=== PATIENT | male | born 1970 | race Caucasian/White ===

== ENCOUNTER 2017-08-02 13:50 | Inpatient (IN) | payer OTHER ==
[2017-08-02 14:51] VITALS: BMI 26.1
--- NOTE | 2017-08-02 15:32 | HP ---
CIWA Score - CIWA Score Nausea/Vomitin-No Nausea/No Vomiting Muscle Tremors: 3 Anxiety: 5 Agitation: 4-Moderately Restless Paroxysmal Sweats: 3 Orientation: 0-Oriented Tacttile Disturbances: 3-Moderate Itch/Numb/Burn Auditory Disturbances: 0-None Visual Disturbances: 0-None Headache: 0-None Present CIWA-Ar Total Score: 18 Admission ROS BHS - HPI Chief Complaint: "I nee to try to clean myself up." Patient is here to Detox from Alcohol. Allergies/Adverse Reactions: Allergies Allergy/AdvReac Type Severity Reaction Status Date / Time bee venom protein (honey bee) AdvReac Severe Swelling Verified 08/02/17 15:29 History of Present Illness: Patient is a 47 Yo male here to detox from Alcohol. This is patient's first Detox admission at [facility]. Patient had a Detox admission at [facility] in 2016 and a Detox admission at [facility] in 2014. Longest period of sobriety in recent years: approx. 2 years (2014 - 2016). Exam Limitations: No Limitations - Ebola screening Have you traveled outside of the country in the last 21 days: No (N) Have you had contact with anyone from an Ebola affected area: No Have you been sick,other than usual withdrawal symptoms: No Do you have a fever: No - Review of Systems Constitutional: Chills, Diaphoresis, Fever, Malaise, Night Sweats, Changes in sleep EENT: reports: No Symptoms Reported Respiratory: reports: Productive cough Cardiac: reports: Palpitations GI: reports: No Symptoms Reported : reports: No Symptoms Reported Musculoskeletal: reports: Neck Pain Integumentary: reports: No Symptoms Reported Neuro: reports: Seizure (Last - just prior to Detox admission at [facility] in 2014.), Tremors Endocrine: reports: No Symptoms Reported Hematology: reports: No Symptoms Reported Psychiatric: reports: Judgement Intact, Mood/Affect Appropiate, Orientated x3, Anxious Other Systems: Reviewed and Negative Patient History - Patient Medical History Hx Anemia: No Hx Asthma: No Hx Chronic Obstructive Pulmonary Disease (COPD): No Hx Cancer: No Hx Cardiac Disorders: No Hx Congestive Heart Failure: No Hx Hypertension: Yes (NON-COMPLIANT WITH PX MEDICATION; PT REPORTS BP ONLY HIGH WHEN USING ALOHOL) Hx Hypercholesterolemia: Yes (NO PREVIOUS MEDS.) Hx Pacemaker: No HX Cerebrovascular Accident: No Hx Seizures: Yes (2015- RELATED TO ALCOHOL WITHDRAWAL) Hx Dementia: No Hx Diabetes: No Hx Gastrointestinal Disorders: No Hx Liver Disease: No Hx Genitourinary Disorders: No Hx Sexually Transmitted Disorders: No Hx Renal Disease (ESRD): No Hx Thyroid Disease: No Hx Human Immunodeficiency Virus (HIV): No (NEVER TESTED.) Hx Hepatitis C: No (NEVER TESTED.) Hx Depression: No Hx Suicide Attempt: No (PATIENT DENIES CURRENT SI / HI.) Hx Bipolar Disorder: No Hx Schizophrenia: No Other Medical History: DENIES. - Patient Surgical History Past Surgical History: Yes Hx Neurologic Surgery: No Hx Cataract Extraction: No Hx Cardiac Surgery: No Hx Lung Surgery: No Hx Breast Surgery: No Hx Breast Biopsy: No Hx Abdominal Surgery: No Hx Appendectomy: No Hx Cholecystectomy: No Hx Genitourinary Surgery: No Hx Section: No Hx Orthopedic Surgery: Yes (RIGHT ANKLE SX IN 2012; METAL PLATE INSERTED.) Other Surgical History: DENIES. Anesthesia Reaction: No - PPD History Previous Implant?: (UNKNOWN) Documented Results: Negative w/o proof Implanted On Prior R Admission?: No PPD to be Administered?: Yes - Reproductive History Patient is a Female of Child Bearing Age (11 -55 yrs old): No (PATIENT IS MALE.) - Smoking Cessation Smoking history: Current every day smoker Have you smoked in the past 12 months: Yes Aproximately how many cigarettes per day: 20 Cigars Per Day: 0 Hx Chewing Tobacco Use: No Initiated information on smoking cessation: Yes 'Breaking Loose' booklet given: 08/02/17 (GIVEN TO PATIENT.) - Substance & Tx. History Hx Alcohol Use: Yes Hx Substance Use: Yes Substance Use Type: Alcohol Hx Substance Use Treatment: Yes (Previous Detox admissions at [facility] ( 2015),[facility](2017)) - Substances Abused Alcohol Route: Oral Frequency: Daily Amount used: 12 pack (12 ounces) beer Age of first use: 26 Date of Last Use: 08/02/17 Family Disease History - Family Disease History Family Disease History: Heart Disease: Mother (HTN.), Sister (HTN.) Admission Physical Exam BHS - Vital Signs Vital Signs: Vital Signs - 24 hr 08/02/17 14:24 Temperature 98.3 F Pulse Rate 90 Respiratory 16 Rate Blood Pressure 178/114 - Physical General Appearance: Yes: Nourished, Appropriately Dressed, Mild Distress, Tremorous, Anxious HEENTM: Yes: Hearing grossly Normal, Normocephalic, Normal Voice, ANU, Pharynx Normal Respiratory: Yes: Chest Non-Tender, Lungs Clear, No Respiratory Distress, No Accessory Muscle Use Neck: Yes: No masses,lesions,Nodules, Supple, Trachea in good position Breast: Yes: Breast Exam Deferred Cardiology: Yes: Regular Rhythm, Regular Rate, S1, S2 Abdominal: Yes: Normal Bowel Sounds, Non Tender, Flat, Soft Genitourinary: Yes: Within Normal Limits Back: Yes: Normal Inspection Musculoskeletal: Yes: full range of Motion, Gait Steady Extremities: Yes: Normal Capillary Refill, Normal Range of Motion, Non-Tender, Tremors Neurological: Yes: Fully Oriented, Alert, Normal Mood/Affect, Normal Response Integumentary: Yes: Normal Color, Dry, Warm Lymphatic: Yes: Within Normal Limits - Diagnostic (1) Alcohol dependence with uncomplicated withdrawal Current Visit: Yes Status: Acute (2) Hypertension Current Visit: Yes Status: Chronic Qualifiers: Hypertension type: unspecified Qualified Code(s): I10 - Essential (primary ) hypertension (3) Nicotine dependence Current Visit: Yes Status: Chronic Qualifiers: Nicotine product type: cigarettes Substance use status: uncomplicated Qualified Code(s): F17.210 - Nicotine dependence, cigarettes, uncomplicated (4) History of seizure Current Visit: Yes Status: Suspected Comment: DUE TO WITHDRAWAL. (5) History of hypercholesterolemia Current Visit: Yes Status: Suspected Cleared for Admission [facility] - Detox or Rehab [facility] Level of Care: Medically Managed Detox Regimen/Protocol: Librium [facility] Breath Alcohol Content Breath Alcohol Content: 0 Urine Drug Screen - Results Drug Screen Negative: No Urine Drug Screen Results: BZO-Benzodiazepines
[2017-08-02] MEDS ORDERED: IBUPROFEN 400 MG TABLET (FP) PO PRN (15:59)
[2017-08-02] MEDS ORDERED: MAGNESIUM CITRATE 300 ML BOTTLE PO PRN (15:59)
[2017-08-02] MEDS ORDERED: MAG HYDROX/AL HYDROX/SIMETH 30 ML UNIT-DOSE CUP PO PRN (15:59)
[2017-08-02] MEDS ORDERED: chlordiazePOXIDE HCL 25 MG CAPSULE PO PRN (15:59)
[2017-08-02] MEDS ORDERED: MAGNESIUM HYDROX 2400MG/30ML ORAL SUSPENSION 30 ML CUP PO PRN (15:59)
[2017-08-02] MEDS ORDERED: P-EPHED 60MG/TRIPROLIDI 2.5MG TABLET PO PRN (15:59)
[2017-08-02] MEDS ORDERED: guaiFENesin/D-METHORPHAN HB 10 ML UNIT-DOSE CUPS PO PRN (15:59)
[2017-08-02] MEDS ORDERED: MENTHOL/PHENOL 1 EACH UD MM PRN (15:59)
[2017-08-02] MEDS ORDERED: chlordiazePOXIDE HCL 25 MG CAPSULE PO ONE (15:59)
[2017-08-02] MEDS ORDERED: ACETAMINOPHEN 325 MG TABLET (FP) PO PRN (15:59)
[2017-08-02] MEDS ORDERED: NICOTINE POLACRILEX 2 MG GUM BC PRN (15:59)
[2017-08-02] MEDS ORDERED: LOPERAMIDE HCL 2 MG CAPSULE PO PRN (15:59)
[2017-08-02] MEDS ORDERED: CYCLOBENZAPRINE HCL 10 MG TABLET (FP) PO PRN (16:04)
[2017-08-02] MEDS: chlordiazePOXIDE HCL 25 MG CAPSULE PO SCH ×2 (18:32→22:28)
[2017-08-02] MEDS: NICOTINE 21 MG/24 HOURS TOPICAL PATCH TD SCH (18:33)
[2017-08-02] MEDS: ATENOLOL 25 MG TABLET (FP) PO SCH (18:44)
[2017-08-02] MEDS ORDERED: MELATONIN 5 MG TABLETS PO PRN (22:00)
[2017-08-02] MEDS ORDERED: THIAMINE HCL 100 MG TABLET (FP) PO SCH (22:00)
[2017-08-03] MEDS: chlordiazePOXIDE HCL 25 MG CAPSULE PO SCH ×2 (05:29→10:11)
--- NOTE | 2017-08-03 09:39 | EKG ---
Test Reason : Blood Pressure : / mmHG Vent. Rate : 083 BPM Atrial Rate : 083 BPM P-R Int : 170 ms QRS Dur : 148 ms QT Int : 396 ms P-R-T Axes : 059 075 034 degrees QTc Int : 465 ms NORMAL SINUS RHYTHM WITH SINUS ARRHYTHMIA RIGHT BUNDLE BRANCH BLOCK ABNORMAL ECG NO PREVIOUS ECGS AVAILABLE Confirmed by MICHAEL CHAUDHARY MD ([id number]) on 08/03/2017 9:39:23 AM Referred By: Confirmed By:MICHAEL CHAUDHARY MD
[2017-08-03 09:59] LABS: CHLORIDE 104 mmol/L (98-107); POTASSIUM 3.9 mmol/L (3.5-5.1); SODIUM 140 mmol/L (136-145)
[2017-08-03] MEDS ORDERED: PRENATAL VITAMINS W/ FOLIC ACID TABLET (FP) PO SCH (10:00)
[2017-08-03 10:09] LABS: HEMATOCRIT 45.5 % (35.4-49); HEMOGLOBIN 15.7 GM/dL (11.7-16.9); MCH 32.9 pg (25.7-33.7); MCHC 34.5 g/dl (32.0-35.9); MEAN CELL VOLUME 95.4 fl (80-96); MEAN PLT VOLUME 9.8 fl (7.5-11.1); PLATELET COUNT 220 K/MM3 (134-434); RBC 4.77 M/mm3 (4.00-5.60); RDW 13.3 % (11.9-15.9)
[2017-08-03] MEDS: ATENOLOL 25 MG TABLET (FP) PO SCH (10:10)
[2017-08-03] MEDS: NICOTINE 21 MG/24 HOURS TOPICAL PATCH TD SCH (10:11)
--- NOTE | 2017-08-03 10:38 | PN ---
S CIWA - CIWA Score Nausea/Vomitin-Mild Nausea/No Vomiting Muscle Tremors: 4-Moderate,w/Arms Extend Anxiety: 4-Mod. Anxious/Guarded Agitation: 4-Moderately Restless Paroxysmal Sweats: 1-Minimal Palms Moist Orientation: 0-Oriented Tacttile Disturbances: 1-Very Mild Itch/Numbness Auditory Disturbances: 0-None Visual Disturbances: 0-None Headache: 0-None Present CIWA-Ar Total Score: 15 BHS Progress Note (SOAP) Subjective: sweat tremor restlessness anxiety irritable Objective: 08/03/17 10:41 Vital Signs Temperature 97.7 F 08/03/17 09:27 Pulse Rate 66 08/03/17 09:27 Respiratory Rate 16 08/03/17 09:27 Blood Pressure 138/105 08/03/17 09:27 O2 Sat by Pulse Oximetry (%) Laboratory Last Values WBC 7.0 K/mm3 (4.0-10.0) 08/03/17 05:55 RBC 4.77 M/mm3 (4.00-5.60) 08/03/17 05:55 Hgb 15.7 GM/dL (11.7-16.9) 08/03/17 05:55 Hct 45.5 % (35.4-49) 08/03/17 05:55 MCV 95.4 fl (80-96) 08/03/17 05:55 MCH 32.9 pg (25.7-33.7) 08/03/17 05:55 MCHC 34.5 g/dl (32.0-35.9) 08/03/17 05:55 RDW 13.3 % (11.9-15.9) 08/03/17 05:55 Plt Count 220 K/MM3 (134-434) 08/03/17 05:55 MPV 9.8 fl (7.5-11.1) 08/03/17 05:55 Sodium 140 mmol/L (136-145) 08/03/17 05:55 Potassium 3.9 mmol/L (3.5-5.1) 08/03/17 05:55 Chloride 104 mmol/L (98-107) 08/03/17 05:55 lab noted Assessment: 08/03/17 10:42 withdrawal sx Plan: continue detox
[2017-08-03 11:15] LABS: ALBUMIN 4.3 g/dl (3.4-5.0); ALK PHOS 79 U/L (45-117); ANION GAP 14 (8-16); BILIRUBIN,TOTAL 0.4 mg/dL (0.2-1.0); BLOOD UREA NITROGEN 3 mg/dL (7-18); CALCIUM 9.5 mg/dL (8.5-10.1); CO2 22 mmol/L (21-32); CREATININE 0.7 mg/dL (0.7-1.3); GLUCOSE,RANDOM 93 mg/dL (74-106); SGOT/AST 85 U/L (15-37); SGPT/ALT 87 U/L (12-78); TOT PROT 8.4 g/dl (6.4-8.2)
[2017-08-03] MEDS ORDERED: chlordiazePOXIDE HCL 25 MG CAPSULE PO SCH (17:00)
[2017-08-03 18:26] VITALS: BP 145/76; PULSE 61; TEMP 98.2
--- NOTE | 2017-08-03 19:57 | DS ---
[facility] Detox Discharge Summary Admission Date: 08/02/17 Discharge Date: 08/03/17 - History Present History: Alcohol Dependence Additional Comments: Patient left AMA. Aware of the risk of not completing treatment. For worsening symptoms patient to follow up at local ED, urgent care or PMD. - Physical Exam Results Vital Signs: Vital Signs Temperature 98.2 F 08/03/17 18:25 Pulse Rate 61 08/03/17 18:25 Respiratory Rate 18 08/03/17 18:25 Blood Pressure 145/76 08/03/17 18:25 O2 Sat by Pulse Oximetry (%) Pertinent Admission Physical Exam Findings: Vital Signs Temperature 98.2 F 08/03/17 18:25 Pulse Rate 61 08/03/17 18:25 Respiratory Rate 18 08/03/17 18:25 Blood Pressure 145/76 08/03/17 18:25 O2 Sat by Pulse Oximetry (%) Laboratory Last Values WBC 7.0 K/mm3 (4.0-10.0) 08/03/17 05:55 RBC 4.77 M/mm3 (4.00-5.60) 08/03/17 05:55 Hgb 15.7 GM/dL (11.7-16.9) 08/03/17 05:55 Hct 45.5 % (35.4-49) 08/03/17 05:55 MCV 95.4 fl (80-96) 08/03/17 05:55 MCH 32.9 pg (25.7-33.7) 08/03/17 05:55 MCHC 34.5 g/dl (32.0-35.9) 08/03/17 05:55 RDW 13.3 % (11.9-15.9) 08/03/17 05:55 Plt Count 220 K/MM3 (134-434) 08/03/17 05:55 MPV 9.8 fl (7.5-11.1) 08/03/17 05:55 Sodium 140 mmol/L (136-145) 08/03/17 05:55 Potassium 3.9 mmol/L (3.5-5.1) 08/03/17 05:55 Chloride 104 mmol/L (98-107) 08/03/17 05:55 Carbon Dioxide 22 mmol/L (21-32) 08/03/17 05:55 Anion Gap 14 (8-16) 08/03/17 05:55 BUN 3 mg/dL (7-18) L 08/03/17 05:55 Creatinine 0.7 mg/dL (0.7-1.3) 08/03/17 05:55 Creat Clearance w eGFR > 60 (>60) 08/03/17 05:55 Random Glucose 93 mg/dL (74-106) 08/03/17 05:55 Calcium 9.5 mg/dL (8.5-10.1) 08/03/17 05:55 Total Bilirubin 0.4 mg/dL (0.2-1.0) 08/03/17 05:55 AST 85 U/L (15-37) H 08/03/17 05:55 ALT 87 U/L (12-78) H 08/03/17 05:55 Alkaline Phosphatase 79 U/L (45-117) 08/03/17 05:55 Total Protein 8.4 g/dl (6.4-8.2) H 08/03/17 05:55 Albumin 4.3 g/dl (3.4-5.0) 08/03/17 05:55 RPR Titer Nonreactive (NONREACTIVE) 08/03/17 05:55 HIV 1&2 Antibody Screen Negative 08/03/17 05:55 HIV P24 Antigen Negative 08/03/17 05:55 - Medication Discharge Medications: Ambulatory Orders Atenolol [Tenormin -] 25 mg PO DAILY 08/02/17 - Diagnosis (1) Alcohol dependence with uncomplicated withdrawal Current Visit: Yes Status: Acute (2) Hypertension Current Visit: Yes Status: Chronic Qualifiers: Hypertension type: unspecified Qualified Code(s): I10 - Essential (primary ) hypertension (3) Nicotine dependence Current Visit: Yes Status: Chronic Qualifiers: Nicotine product type: cigarettes Substance use status: uncomplicated Qualified Code(s): F17.210 - Nicotine dependence, cigarettes, uncomplicated (4) History of hypercholesterolemia Current Visit: Yes Status: Suspected (5) History of seizure Current Visit: Yes Status: Suspected - AMA Did Patient Leave Against Medical Advice: Yes
--- NOTE | 2017-08-03 19:58 | PN ---
[facility] Progress Note Note: Patient left AMA.
[2017-08-04] MEDS ORDERED: chlordiazePOXIDE 5 MG CAPSULE PO SCH (17:00)
[2017-08-05] MEDS ORDERED: chlordiazePOXIDE HCL 10 MG CAPSULE PO SCH (17:00)
== END 2017-08-03 19:15 | disposition left against medical advice (07) | DRG 894 ==
LOC: YASAS 13:50 → Y6N 17:45
PROVIDERS: ADMIT Surgery; ATTEND Surgery
PROC: HZ2ZZZZ Detoxification Services for Substance Abuse Treatment (ICD-10-PCS; principal; 2017-08-02)
DX: F10.230 Alcohol dependence with withdrawal, uncomplicated (principal); F17.210 Nicotine dependence, cigarettes, uncomplicated; I10 Essential (primary) hypertension; Z91.14 Patient's other noncompliance with medication regimen; Z86.69 Personal history of other diseases of the nervous system and sense organs; Z91.038 Other insect allergy status
CPT/HCPCS: 36415; 80053; 85027; 86593; 87389; 93005; 93010